=== PATIENT | male | born 1945 | race Caucasian/White ===

== ENCOUNTER 2018-01-17 05:56 | Inpatient (IN) ==
[2018-01-17] MEDS ORDERED: CeFAZolin Syr 2,000MG/20 ML 2,000 MG/20 ML SYRINGE IVPB ONE (06:22)
[2018-01-17] MEDS ORDERED: Ringers Solution, Lactated 1,000 ML IVC SCH ×3 (06:30→11:23)
[2018-01-17] MEDS ORDERED: Lidocaine -MPF 2% 2 ML VIAL ONE (06:58)
[2018-01-17] MEDS ORDERED: Lidocaine -MPF 4% 5 ML AMPUL ONE (06:58)
[2018-01-17] MEDS ORDERED: Dexamethasone 4 MG/ML VIAL ONE (06:58)
[2018-01-17] MEDS ORDERED: *HR* Midazolam HCl 2 MG/2 ML VIAL ONE (06:58)
[2018-01-17] MEDS ORDERED: *HR* Succinylcholine 200 MG/10 ML VIAL IVP ONE (06:58)
[2018-01-17] MEDS ORDERED: Ondansetron 4 MG/2 ML VIAL ONE (06:58)
[2018-01-17] MEDS ORDERED: *HR* Rocuronium Bromide 50 MG/5 ML VIAL ONE (06:58)
--- NOTE | 2018-01-17 06:58 | History & Physical Report ---
Date of Encounter: 01/17/18 Time of Encounter: 06:57 24 Hour HP Update - Instructions Instructions: If the History and Physical is less than 30 days old and was completed prior to A.M. admission and or procedure and has NOT been updated on calendar day of procedure please complete this update prior to performing procedure. - Update Patient reports changes in Medical Condition: No Changes in examination, assessment, or condition: No Changes in Medication: No Preop tests/diagnostics Reviewed: Yes Surgery Remains Indicated: Yes Consent for Planned Operative Procedure(s) Verified: Yes - Pre-Operative Checklist Preoperative Checklist Indicated: No Prophylactic Antibiotic Ordered: Yes Is VTE Prophylaxis Indicated?: Yes
[2018-01-17] MEDS ORDERED: *HR* Propofol 200 MG/20 ML VIAL IVP ONE ×2 (06:59→11:02)
[2018-01-17] MEDS ORDERED: *HR* FentaNYL (PF) 100 MCG/2 ML VIAL ONE (06:59)
--- NOTE | 2018-01-17 07:00 | Discharge Summary ---
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 Priority: Primary Status: Chronic Qualifiers: Fracture type: closed Fracture morphology: other fracture Fracture alignment: displaced Qualified Code(s): S42.291P - Other displaced fracture of upper end of right humerus, subsequent encounter for fracture with malunion (2) Closed fracture of right proximal humerus Priority: Primary Status: Acute Qualifiers: Encounter type: subsequent encounter Fracture morphology: unspecified fracture morphology Fracture healing: with routine healing Qualified Code(s) : S42.201D - Unspecified fracture of upper end of right humerus, subsequent encounter for fracture with routine healing (3) Obesity (BMI 30.0-34.9) Priority: Secondary Status: Chronic (4) Anxiety disorder Priority: Secondary Status: Chronic Qualifiers: Anxiety disorder type: unspecified anxiety disorder Qualified Code(s): F41.9 - Anxiety disorder, unspecified (5) Status post reverse total replacement of right shoulder Priority: Primary Status: Acute (6) Hypertension Priority: Secondary Status: Chronic Qualifiers: Hypertension type: essential hypertension Qualified Code(s): I10 - Essential (primary) hypertension (7) Hyperlipidemia Priority: Secondary Status: Chronic Qualifiers: Hyperlipidemia type: unspecified Qualified Code(s): E78.5 - Hyperlipidemia , unspecified - Hospital Course Hospital course: Mr. Griffith is a 72 year old male - Time Spent with Patient Total time spent providing and/or coordinating discharge services: - Discharge Medications Home Medications: Aspirin 81 mg PO DAILY 08/28/15 [History] Atorvastatin [Lipitor] 10 mg PO HS 08/28/15 [History] Celecoxib [Celebrex] 200 mg PO DAILY 08/28/15 [History] Metformin HCl [Metformin HCl ER] 1,000 mg PO BID 08/28/15 [History] Tamsulosin [Flomax] 0.4 mg PO DAILY 08/28/15 [History] Cholecalciferol (D-3) [Vitamin D] 2,000 unit PO DAILY 06/18/16 [History] Empagliflozin [Jardiance] 10 mg PO DAILY 06/18/16 [History] Valsartan/Hydrochlorothiazide [Diovan Hct 80-12.5 mg Tablet] 1 tab PO DAILY [History] Oxycodone HCl/Acetaminophen [Percocet 5-325 mg Tablet] 1 each PO Q6H 3 Days #10 tablet 01/08/18 [Rx] Ubidecarenone [Co Q-10] 100 mg PO DAILY 01/08/18 [History] Dulaglutide [Trulicity] 0.75 mg SQ QWEEK 01/17/18 [History] Esomeprazole Magnesium [Nexium] 40 mg PO DAILY 01/17/18 [History] Loratadine [Claritin] 10 mg PO DAILY 01/17/18 [History] OxyCODONE Immed Rel [Roxicodone 5 MG] 5 mg PO Q4HR PRN 5 Days #20 tablet [Rx] Temazepam [Restoril] 30 mg PO HS 01/17/18 [History] Allergies/Adverse Reactions: 3 Allergy/AdvReac Type Severity Reaction Status Date / Time adhesive tape Allergy Rash Verified 01/17/18 06:59 tetanus shot Allergy See Uncoded 01/17/18 06:59 Comments FOAM AdvReac Rash Uncoded 01/17/18 06:59 PLASTIC BANDAIDS AdvReac Rash Uncoded 01/17/18 06:59 Primary care physician: Alex Bruno DO - Patient Status Disposition: Home, Self-Care Condition: Good - Discharge Instructions Follow Up With: Shawnee Dumont PAC [Physician Vat Tender] - 01/23/18 9:45 am Alex Bruno DO [Primary Care Provider] - 01/27/18 8:30 am Additional Instructions: No shoulder motion. Elbow motion only. Leave sling/wedge in place - remove only for hygiene. Wedge in place x 6 weeks. Discharge Instructions: Total Shoulder Please call [facility] ([phone]), your Primary Care Physician, or report to the Emergency Room if you have any of the following symptoms: Nausea, vomiting, fever greater that 101.5, swelling, chest pain, shortness of breath, increased pain/redness/drainage/odor for your incision site, numbness/ tingling, or any other concerning symptoms. ACTIVITY: Always keep your arm in the sling. Do not raise your arm away from your body. Do not use your arm to help with getting in or out of bed. No weight bearing permitted. Incentive Spirometer 10 times an hour. MEDICATIONS: Upon discharge resume your home medications. Take all the medications as prescribed. Take a stool softener if taking narcotic pain medications. Stool softeners are only effective if you drink enough fluids. Drink 6-8 glass of water or fluids a day, unless this is not allowed for another health problem. Despite using stool softeners, if you haven't had a bowel movement in 3 days, please switch to a gentle laxative. Gentle laxatives are sold over the counter. You should have a bowel movement within 24 hours, if not call the office. You will be discharged from the hospital with a prescription for pain medication. You are encouraged to decrease the use of narcotic pain medication as tolerated. Should you require a refill, please call the office. [facility] prescribes narcotic pain medication for only 4-6 weeks after surgery. If you require pain medication beyond this time period, you may be referred to your Primary Care Physician or to the Pain Clinic for further evaluation. Plan ahead for refills on pain medication as many narcotics either need to be picked up at the office or mailed. It is best to call 48-72 hours in advance of needing a prescription refill so you don't run out of medication. To help control the post-operative pain, you may take NSAIDs (Aleve,Advil, Motrin, Ibuprofen, Naprosyn) or Tylenol as prescribed on the bottle in addition to the pain medication. WOUND CARE: Leave the dressing on for 7-10 days. You may change the dressing if it becomes saturated greater than 50%. Do not get the dressing wet at anytime. Wash your hands with antibacterial soap, rinse and dry prior to any wound care. If you have patricio the visiting nurse or rehab facility can remove the stapes 10-14 days after surgery and place steri-strips across the wound. Leave the steri-strips in place until they fall off on their own. You may let water from the shower run on top of the steri-strips. If you do not have a visiting nurse or rehab facility, you will need to return to the office at 10-14 days for the patricio to be removed. If you have itching or redness around the dressing call the office. FOLLOW-UP: Please follow up with your surgeon in the orthopedic clinic, as scheduled <Alma Brandon - Last Filed: 01/17/18 14:55> Orders not resulted at time of discharge: Pending orders 01/17/18 07:13 EKG [ECG 12 lead ECG] [ECG] Stat 01/17/18 07:22 US anesthesia pain block [US] Stat 01/17/18 09:47 Surgical Pathology [PTH] Routine 01/18/18 04:00 Hemoglobin and Hematocrit [HEME] AM 0400 01/19/18 04:00 Hemoglobin and Hematocrit [HEME] AM 0400 Date of Encounter: 01/17/18 Time of Encounter: 12:15 - Discharge Diagnosis (1) Status post reverse total replacement of right shoulder Priority: Primary Status: Acute (2) Closed fracture of right proximal humerus Priority: Secondary Status: Acute Qualifiers: Encounter type: subsequent encounter Fracture morphology: unspecified fracture morphology Fracture healing: with routine healing Qualified Code(s) : S42.201D - Unspecified fracture of upper end of right humerus, subsequent encounter for fracture with routine healing (3) Anxiety disorder Priority: Secondary Status: Chronic Qualifiers: Anxiety disorder type: unspecified anxiety disorder Qualified Code(s): F41.9 - Anxiety disorder, unspecified (4) 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 Priority: Secondary Status: Chronic Qualifiers: Fracture type: closed Fracture morphology: other fracture Fracture alignment: displaced Qualified Code(s): S42.291P - Other displaced fracture of upper end of right humerus, subsequent encounter for fracture with malunion (5) Hyperlipidemia Priority: Secondary Status: Chronic Qualifiers: Hyperlipidemia type: unspecified Qualified Code(s): E78.5 - Hyperlipidemia , unspecified (6) Hypertension Priority: Secondary Status: Chronic Qualifiers: Hypertension type: essential hypertension Qualified Code(s): I10 - Essential (primary) hypertension (7) Obesity (BMI 30.0-34.9) Priority: Secondary Status: Chronic - Hospital Course Hospital course: Mr. Griffith is a 72 year old male s/p Total Shoulder Replacment Reverse, right with a history of DM, RA, HTN, anxiety . Patient had uneventful postoperative course. Stable for discharge. Patient seen at bedside, without complaints. A&O x 3 Afebrile, vital signs stable. Postop dressings c/d/i. Full ROM of wrist/ fingers. slingshot brace in place. Labs reviewed. H/H 11.8/35.7 - stable, asymptomatic Pain control: adequate Participating in PT. NO SHOULDER MOTION, must wear brace at all times and only remove for hygiene purposes. NO shoulder therapy, may work with elbow and wrist ROM only. All questions and concerns addressed. Educated on use of incentive spirometer. Encouraged ambulation and proper hydration. Patient educated on post-operative restrictions and post-operative care. Assessment and plan: Continue with postoperative care Discharge plan: Home , discharge today. - Time Spent with Patient Total time spent providing and/or coordinating discharge services: Date of admission: 01/17/18 11:24 Primary care physician: Alex Bruno DO Consults: 01/17/18 11:23 Consult to Occupational Therapy [CONS] Routine Comment: post shoulder surgery Reason for Consult: post shoulder surgery Does patient have active BEDREST order?: No Is patient medically & hemodynamically stable?: Yes Consult to Physical Therapy [CONS] Routine Comment: post shoulder surgery Reason for Consult: post shoulder surgery Does patient have active BEDREST order?: No Is patient medically & hemodynamically stable?: Yes RT Post Op Consult [CONS] Routine Discharging clinician: Charles Carmona Anticipated date of discharge: 01/17/18 Labs on day of discharge: Labs from last 24 hours 01/17/18 01/17/18 10:26 06:29 Hgb 11.8 L D Hct 35.7 L POC Glucose 121 H - Impressions ITS Impressions Fluoroscopy 01/17/18 00:00 IMPRESSION: Intraprocedural fluoroscopic spot images as above. See separate procedure report for more information. D/ /17/2018 10:07:30 Manish Vazquez MD / erickson Interpreting Provider: Manish Vazquez MD Shoulder X-Ray 01/17/18 00:00 IMPRESSION: Intraprocedural fluoroscopic spot images as above. See separate procedure report for more information. D/ /17/2018 10:07:30 Manish Vazquez MD / erickson Interpreting Provider: Manish Vazquez MD Shoulder X-Ray 01/17/18 07:00 IMPRESSION: No radiographic evidence of acute complication status post reverse right total shoulder arthroplasty. D/ / Yonny Horn MD / Yonny Horn MD Interpreting Provider: Yonny Horn MD - Patient Status Functional capacity at discharge: independent ambulation Overall status at discharge: patient is back to baseline - Diet and Activity Activity: increase activity as tolerated (with NO shoulder motion) Diet: advance to your usual diet
--- NOTE | 2018-01-17 07:08 | Anesthesia Evaluation PreOp ---
Date of Encounter: 01/17/18 Time of Encounter: 07:04 - Past History Planned Operation: R total shoulder replacement Cardiac History: HTN, Hyperlipidemia Pulmonary History: Denies Any Significant HX [employer]ISH RUBBER History: Other (depression, anxiety) Other Medical History: Diabetes Type II Anesthesia History: No Prior Anesthetic Complications, Past Anesthesia (skin ca , R shoulder sx, colonoscopy, EGD, nishi cataract) Alcohol Use: none Drug use: none Medications and Allergies Aspirin 81 mg PO DAILY 08/28/15 [History] Atorvastatin [Lipitor] 10 mg PO HS 08/28/15 [History] Celecoxib [Celebrex] 200 mg PO DAILY 08/28/15 [History] Metformin HCl [Metformin HCl ER] 1,000 mg PO BID 08/28/15 [History] Omeprazole [PriLOSEC] 20 mg PO DAILY 08/28/15 [History] Tamsulosin [Flomax] 0.4 mg PO DAILY 08/28/15 [History] Cholecalciferol (D-3) [Vitamin D] 5,000 unit PO DAILY 06/18/16 [History] Empagliflozin [Jardiance] 10 mg PO DAILY 06/18/16 [History] Valsartan/Hydrochlorothiazide [Diovan Hct 80-12.5 mg Tablet] 1 tab PO DAILY [History] Coq10 01/08/18 [History] Cyclobenzaprine [Flexeril] 10 mg PO TID PRN #10 tablet 01/08/18 [Rx] [place]-3 01/08/18 [History] Oxycodone HCl/Acetaminophen [Percocet 5-325 mg Tablet] 1 each PO Q6H 3 Days #10 tablet 01/08/18 [Rx] Probiotic Complex 01/08/18 [History] Trulicity 01/08/18 [History] 3 Allergy/AdvReac Type Severity Reaction Status Date / Time adhesive tape Allergy Rash Verified 01/17/18 06:59 tetanus shot Allergy See Uncoded 01/17/18 06:59 Comments FOAM AdvReac Rash Uncoded 01/17/18 06:59 PLASTIC BANDAIDS AdvReac Rash Uncoded 01/17/18 06:59 - Meds/Allergy Pre-op Review Medications Reviewed: Yes Allergies Reviewed: Yes Beta Blockers on Current Med List: No Anesthesia Results - Labs Laboratory Tests 10/24/16 01/16/18 01/16/18 13:57 10:57 10:57 WBC 11.1 Hgb 15.0 Hct 44.9 Plt Count 263 Sodium 138 Potassium 4.0 Chloride 99 Carbon Dioxide 29 BUN 16 POC Creatinine 1.00 Creatinine 0.80 Hemoglobin A1c 01/16/18 10:58 WBC Hgb Hct Plt Count Sodium Potassium Chloride Carbon Dioxide BUN POC Creatinine Creatinine Hemoglobin A1c 6.7 H Anesthesia Exam O2 Sat Height 1.75 m Height 1.75 m Height 1.75 m Weight 92.533 kg Weight 92.533 kg Weight 92.533 kg O2 Sat by Pulse Oximetry 96 Vital Signs Temp Pulse Resp BP Pulse Ox 98.2 F 93 18 136/71 96 01/17/18 06:32 01/17/18 06:32 01/17/18 06:32 01/17/18 06:32 01/17/18 06:32 Weight: 92kg NPO (# of Hours): >8 - HEENT Pupil (Motor): Pupils equal, EOMI Mallampati: III Teeth: Poor dentition Oral Opening: Greater than 3 - FINNISH RUBBER LOC: Oriented FIN[employer]ISH RUBBER Motor: Normal RUE, Normal LUE, Normal RLE, Normal LLE, Normal Face [employer]ISH RUBBER Sensory: Normal: RUE, LUE, RLE, LLE, Face - Cardiac Rhythm: Regular - Pulmonary Breath Sounds: bilateral Clear Respiratory Effort: Symmetrical Anesthesia Assess/Plan ASA Score: 2 Modified [place] Scale for Level of Consciousness: Cooperative, oriented, and tranquil Anesthetic Plan: General, Regional (R supraclav nn block) Monitoring Plan: Standard Monitors Recovery Plan: PACU
[2018-01-17] MEDS ORDERED: ROPIVACAINE HCL/PF 0.5% 30 ML VIAL ONE (07:09)
[2018-01-17] MEDS ORDERED: Bupivacaine/Clonidine Syringe 1 EACH SYRINGE ONE (07:09)
[2018-01-17] MEDS ORDERED: Lidocaine -MPF 2% 5 ML VIAL ONE (07:09)
[2018-01-17] MEDS ORDERED: Acetaminophen IV 1,000 MG/100 ML INFUS..BTL ONE (07:15)
[2018-01-17] MEDS ORDERED: Ethanol\\Acetic Acid\\Na Ace\\Ben 1,000 ML IRRIG.SOLN IR ONE (07:20)
[2018-01-17] MEDS ORDERED: Dextrose Gel 15 GM/37.5 ML TUBE PO PRN ×4 (08:03→11:23)
[2018-01-17] MEDS ORDERED: D5% in Water 1,000 ML IVC PRN (08:03)
[2018-01-17] MEDS ORDERED: *HR* Dextrose 50 % in Water (Syg) 50 ML SYRINGE IVP PRN ×2 (08:03→11:23)
[2018-01-17] MEDS ORDERED: *HR* PHENYLEPHRINE 1,000 MCG/10 ML SYRINGE IVP ONE ×2 (08:10→09:38)
[2018-01-17] MEDS ORDERED: EPHEDrine 50 MG/ML VIAL ONE (08:27)
[2018-01-17] MEDS ORDERED: *HR* OxyCODONE Immed Rel 5 MG TABLET PO PRN ×2 (08:31→11:23)
--- NOTE | 2018-01-17 08:31 | Anesthesia Procedures ---
Date of Encounter: 01/17/18 Time of Encounter: 07:30 Procedures: Anesthesia - Nerve Block Procedure Date: 01/17/18 Time: 07:30 Allergies/Adv Reactions: 3 Allergy/AdvReac Type Severity Reaction Status Date / Time adhesive tape Allergy Rash Verified 01/17/18 06:59 tetanus shot Allergy See Uncoded 01/17/18 06:59 Comments FOAM AdvReac Rash Uncoded 01/17/18 06:59 PLASTIC BANDAIDS AdvReac Rash Uncoded 01/17/18 06:59 Pre-op Diagnosis: right total shoulder Checklist: Correct Patient Identifier, Correct procedure, History checked Correct side: Right Blood Thinner: No Monitor Applied: EKG, BP, Pulse Oximetry Supplemental Oxygen via Nasal Cannula (L/min): 2 Sedation: Versed (mg): 2 Sedation: Fentanyl (mcg): 100 Indication: Post Op Analgesia Pre-op Neuro Deficits: No Block Type: Interscalene, Supraclavicular, Other (SCP, ICB) Catheter placed: No Sterile Technique: Yes Ultrasound used: Yes Anatomy identified: Yes Visual spread of Local: Yes Blood on Needle Aspiration: No Smooth Injection of Local: Yes Pain with Injection of Local: No Prep: Chlorhexadine Needle: 22 x 50 mm Stimuplex Local: 0.25% Bupivicaine w/Clonidine 20 mcg/cc, Ropivacaine Volume (cc): 50 Number of Attempts: 1 Complications: None/effective block Vitals: see nurses notes for vitals
[2018-01-17] MEDS ORDERED: *HR* FentaNYL (PF) 100 MCG/2 ML VIAL IVP PRN (08:32)
[2018-01-17] MEDS ORDERED: *HR* Midazolam HCl 2 MG/2 ML VIAL IVP PRN (08:32)
[2018-01-17] MEDS ORDERED: *HR* Labetalol 20 MG/4 ML SYRINGE IVP PRN (08:32)
--- NOTE | 2018-01-17 10:09 | Orthopedic Operative Note ---
Date of procedure: 01/17/18 Pre-op diagnosis: Right shoulder old proximal humeral malunion acute proximal humerus fractur Post-op diagnosis: same Procedure: Procedure: Total Shoulder Replacment Reverse, right Estimated blood loss: 600 cc Hardware: Metal and polyethylene replacement: Arthrex 28 mm neutral glenoid baseplate, 30 mm post 4, 5.5 locking screws, 42+ 4S here glenosphere, 9 revision humeral stem, poly insert 3 constrained, 3 cerclage fiber tapes Procedural Notes: Patient with a significant malunion of the proximal humerus with a fracture below the surgical neck malunion was chronic fracture was acute. Operative procedure: The patient was brought to the operating room and placed on the operating room table. After general anesthesia was administered the operative shoulder was examined. Findings were noted. The patient was placed in the modified beachchair position. All pressure points were padded appropriately. And the head was stabilized in the neutral position. The operative extremity was prepped and draped in the sterile surgical fashion. The patient received IV antibiotics prior to skin incision. A standard deltopectoral approach was made to the operative shoulder. Incision was made to the skin and subcutaneous tissue,hemo stasis was obtained with Bovie cautery. Using careful blunt dissection the cephalic vein was identified and mobilized medially. The deltopectoral interval was developed and the clavipectoral fascia was incised. The fracture site was identified, this was below the surgical neck, the distal fragment was delivered into the wound and was reamed up to the 9 revision reamer. Attention was then turned to the proximal fragment, significant malformation from the malunion, no identifiable subscap anterior soft tissue was removed and a humeral cut was made. The proximal fragment was poor quality bone and fragmented during preparation. Attention was then turned to the glenoid. Anterior and posterior Bankart retractors were placed to expose the glenoid. The glenoid guide was seated and the centering hole was made. It was reamed with the appropriate reamer. 28 mm neutral baseplate with a 30 mm post was seated and secured with (4) 5.5 screw. The baseplate was irrigated and dried and the 42+4 Glenosphere was seated and secured with the Vu taper. The Vu taper was tested and found to be secure the central locking screw was secured. the humerus was redislocated and prepared with the diaphyseal reamers, followed by a broaching process up to the appropriate size 9 revision stem in 20 degrees of retroversion. The metaphyseal reamer was then utilized. Trial reduction found the shoulder to be relocatable. Trial components were removed and The appropriate 9 revision stem was impacted in place in 20 degrees of retroversion. The proximal fragmented portion was secured around the proximal humerus with 3 cerclage fiber tapes. Trial reduction found the shoulder to be relocatable and stable with the 3 constrained liner. Poly-was removed real Yessenia was seated and secured. The shoulder had excellent motion and excellent stability and no evidence of dislocation. The deep tissue was irrigated with pulse irrigation and an antibacterial solution. The deltopectoral interval was closed with a running #1 PDS suture, subcutaneous tissue was irrigated and closed with 0 PDS suture, the skin was closed with skin patricio. The patient was placed in a sterile dressing, abduction brace and extubated. The patient was then transferred to the recovery room in stable condition. Anesthesia: MARY Surgeon: Charles Carmona Was there an assistant head cashier present: No Estimated blood loss (cc): 600 Condition: stable Disposition: PACU
--- NOTE | 2018-01-17 10:38 | Anesthesia Evaluation Post Op ---
Date of Encounter: 01/17/18 Time of Encounter: 10:37 - Vital Signs Vital Signs: Vital Signs/O2 Sat, Most Current Temp Pulse Resp BP Pulse Ox 98.2 F 102 18 141/89 95 01/17/18 10:03 01/17/18 10:23 01/17/18 10:23 01/17/18 10:23 01/17/18 10:23 - Lungs Lungs: Clear Ascult./Percussion - Airway Airway: Non-obstructed - Cardiovascular Regular Rate - Mental Status Mental Status: Alert & Oriented, Answers Appropriately - Pain Pain Scale: 0 Pain Scale used: Numeric (1 - 10) - Nausea Vomiting Nausea Vomiting: Not Present - Hydration Hydration: Tolerates oral liquids - Discharge PostOp Status: Discharge Patient to home
[2018-01-17 10:51] LABS: Hematocrit 35.7 % (37.5-50.1)
[2018-01-17 10:52] LABS: Hemoglobin 11.8 g/dL (12.9-16.9)
[2018-01-17] MEDS ORDERED: Empagliflozin [Jardiance] 10 MG PO SCH (11:23)
[2018-01-17] MEDS ORDERED: Cholecalciferol (D-3) 1,000 UNIT TABLET PO SCH (11:23)
[2018-01-17] MEDS ORDERED: MOM Conc 10 ML UD.LIQ PO PRN (11:23)
[2018-01-17] MEDS ORDERED: Aspirin 81 MG TAB.CHEW PO SCH (11:23)
[2018-01-17] MEDS ORDERED: COQ10 100 MG PO SCH (11:23)
[2018-01-17] MEDS ORDERED: *HR* OxyCODONE/APAP 5/325 TABLET PO PRN (11:23)
[2018-01-17] MEDS ORDERED: Ondansetron 4 MG/2 ML VIAL IVP PRN (11:23)
[2018-01-17] MEDS ORDERED: Temazepam 15 MG CAPSULE PO PRN ×2 (11:23→21:00)
[2018-01-17] MEDS ORDERED: *HR* Metformin 500 MG TABLET PO SCH (11:23)
[2018-01-17] MEDS ORDERED: TRULICITY SQ SCH (11:23)
[2018-01-17] MEDS ORDERED: Valsartan 80 MG TABLET PO SCH (11:23)
[2018-01-17] MEDS ORDERED: Loratadine 10 MG TABLET PO SCH (11:23)
[2018-01-17] MEDS ORDERED: traMADol 50 MG TABLET PO PRN (11:23)
[2018-01-17] MEDS ORDERED: Sennosides 8.6 MG TABLET PO PRN (11:23)
[2018-01-17] MEDS ORDERED: Naloxone 0.4 MG/ML INJ IVP PRN (11:23)
[2018-01-17] MEDS ORDERED: Insulin LISPRO 300 UNITS/3 ML VIAL SQ SCH ×4 (11:30→21:00)
[2018-01-17] MEDS ORDERED: *HR* Enoxaparin 30 MG/0.3 ML SYRINGE SQ SCH ×3 (14:00→18:00)
[2018-01-17 15:11] VITALS: BP 136/76
[2018-01-17] MEDS ORDERED: hydroCHLOROthiazide 25 MG TABLET PO SCH (15:45)
== END 2018-01-17 17:50 | disposition home or self-care (01) | DRG 483 ==
LOC: SAMDAY 05:56 → 3NENU 11:24
PROVIDERS: ADMIT Orthopaedic Surgery; ATTEND Orthopaedic Surgery

== ENCOUNTER 2021-08-28 05:59 | Inpatient (IN) ==
[2021-08-28] MEDS ORDERED: 0.9 % Sodium Chloride 1,000 ML ONE ×2 (06:36→08:01)
[2021-08-28] MEDS ORDERED: Heparin 1,000 UNITS/500 mL 500 ML ONE (08:01)
[2021-08-28] MEDS ORDERED: ISOVUE-370 200 ML INFUS..BTL ONE (08:01)
[2021-08-28] MEDS ORDERED: Nitroglycerin 1,000 MCG/5 ML VIAL IV ONE (08:01)
[2021-08-28] MEDS ORDERED: *HR* Midazolam HCl 2 MG/2 ML VIAL ONE ×2 (08:01→08:30)
[2021-08-28] MEDS ORDERED: *HR* FentaNYL (PF) 100 MCG/2 ML VIAL ONE ×2 (08:01→08:30)
[2021-08-28] MEDS ORDERED: *HR* Heparin 10,000 UNIT/10 ML VIAL ONE (08:01)
[2021-08-28] MEDS ORDERED: Perflutren Lipid Microsphere 1.3 ML in 0.9 % Sodium Chloride 8.7 ML IVP PRN (10:26)
[2021-08-28] MEDS ORDERED: Dextrose 4 GM Chewable Tablets PO PRN ×2 (10:56)
[2021-08-28] MEDS ORDERED: D5% in Water 1,000 ML IVC PRN (10:56)
[2021-08-28] MEDS ORDERED: *HR* Dextrose 50 % in Water (Syg) 50 ML SYRINGE IVP PRN (10:56)
[2021-08-28] MEDS: Aspirin Enteric Coated 81 MG Tablet PO SCH (11:15)
[2021-08-28] MEDS: Insulin LISPRO 300 UNITS/3 ML VIAL SUBQ SCH ×2 (11:48→17:21)
[2021-08-28] MEDS ORDERED: Ondansetron 4 MG/2 ML VIAL IVP PRN (11:59)
[2021-08-28] MEDS ORDERED: Naloxone 0.4 MG/ML INJ IVP PRN (11:59)
[2021-08-28] MEDS: *HR* Heparin 5,000 UNIT/ML VIAL SQ SCH (17:29)
[2021-08-28] MEDS: Acetaminophen 325 MG TABLET PO PRN (20:33)
[2021-08-28] MEDS: Temazepam 15 MG CAPSULE PO PRN (21:03)
[2021-08-29 02:05] LABS: Basophils # 0.1 K/mcL (0.0-0.2); Basophils % 1.4 %; Eosinophils # 0.3 K/mcL (0.0-0.6); Eosinophils % 3.3 %; Hematocrit 46.7 % (37.5-50.1); Hemoglobin 16.2 g/dL (12.9-16.9); Immature Granulocytes % 1.6 % (0-4); Lymphocytes # 1.7 K/mcL (0.6-4.6); Lymphocytes % 19.7 %; Mean Corpuscular HGB Conc 34.7 g/dL (31.6-35.5); Mean Corpuscular Hemoglobin 31.6 pg (28.0-33.3); Mean Platelet Volume 11.8 fL (9.4-12.4); Monocytes # 0.9 K/mcL (0.0-1.3); Monocytes % 10.4 %; Neutrophils # 5.6 K/mcL (1.6-8.9); Platelet Count 194 K/mcL (140-400); Red Blood Count 5.13 M/mcL (4.19-5.50); Red Cell Distribution Width 13.3 % (11.5-14.5); Segmented Neutrophils % 63.6 %; White Blood Count 8.8 K/mcL (4.3-11.1)
[2021-08-29 02:22] LABS: BUN/Creatinine Ratio 17 (6-26); Blood Urea Nitrogen 19 mg/dL (8-23); Calcium 9.8 mg/dL (8.6-10.3); Carbon Dioxide 25 mEq/L (23-29); Chloride 104 mEq/L (98-107); Glucose 174 mg/dL (70-105); Osmolality,Calculated 292 (280-300); Potassium 3.5 mEq/L (3.5-5.1); Sodium 138 mEq/L (136-145); eGFR For African Americans > 60 (> 60); eGFR For Non-African Americans > 60 (> 60)
[2021-08-29] MEDS: *HR* Heparin 5,000 UNIT/ML VIAL SQ SCH ×2 (06:19→16:31)
[2021-08-29] MEDS: VIT E ACETATE PO SCH (07:50)
[2021-08-29] MEDS: Aspirin Enteric Coated 81 MG Tablet PO SCH (07:50)
[2021-08-29] MEDS: Losartan/HCTZ 50-12.5 TABLET PO SCH (07:50)
[2021-08-29] MEDS: Cholecalciferol (D-3) 1,000 UNIT (25MCG) TABLET PO SCH (07:50)
[2021-08-29] MEDS: UBIDECARENONE PO SCH (07:50)
[2021-08-29] MEDS: Acetaminophen 325 MG TABLET PO PRN ×2 (07:56→21:50)
[2021-08-29] MEDS: Insulin LISPRO 300 UNITS/3 ML VIAL SUBQ SCH ×3 (07:57→16:31)
[2021-08-29] MEDS: Temazepam 15 MG CAPSULE PO PRN (21:50)
[2021-08-30] MEDS: *HR* Heparin 5,000 UNIT/ML VIAL SQ SCH ×2 (07:33→16:41)
[2021-08-30] MEDS: VIT E ACETATE PO SCH (08:08)
[2021-08-30] MEDS: UBIDECARENONE PO SCH (08:08)
[2021-08-30] MEDS: Losartan/HCTZ 50-12.5 TABLET PO SCH (08:15)
[2021-08-30] MEDS: Aspirin Enteric Coated 81 MG Tablet PO SCH (08:15)
[2021-08-30] MEDS: Insulin LISPRO 300 UNITS/3 ML VIAL SUBQ SCH ×3 (08:15→16:41)
[2021-08-30] MEDS: Cholecalciferol (D-3) 1,000 UNIT (25MCG) TABLET PO SCH (08:15)
[2021-08-30] MEDS ORDERED: Albuterol 2.5 MG/3 ML NEBULIZER IH PRN (13:07)
[2021-08-30 15:25] LABS: Basophils # 0.1 K/mcL (0.0-0.2); Basophils % 1.2 %; Eosinophils # 0.2 K/mcL (0.0-0.6); Eosinophils % 2.3 %; Hematocrit 51.7 % (37.5-50.1); Immature Granulocytes % 1.7 % (0-4); Lymphocytes # 1.4 K/mcL (0.6-4.6); Lymphocytes % 14.7 %; Mean Corpuscular HGB Conc 34.6 g/dL (31.6-35.5); Mean Corpuscular Hemoglobin 31.6 pg (28.0-33.3); Mean Corpuscular Volume 91.2 fL (83.0-100.0); Mean Platelet Volume 11.8 fL (9.4-12.4); Monocytes # 0.9 K/mcL (0.0-1.3); Monocytes % 9.6 %; Neutrophils # 6.6 K/mcL (1.6-8.9); Platelet Count 222 K/mcL (140-400); Red Blood Count 5.67 M/mcL (4.19-5.50); Red Cell Distribution Width 13.3 % (11.5-14.5); Segmented Neutrophils % 70.5 %; White Blood Count 9.4 K/mcL (4.3-11.1)
[2021-08-30 15:26] LABS: Hemoglobin 17.9 g/dL (12.9-16.9)
[2021-08-30 15:30] LABS: Prothrombin Time 10.9 Seconds (9.4-12.1)
[2021-08-30 15:37] LABS: BUN/Creatinine Ratio 18 (6-26); Blood Urea Nitrogen 25 mg/dL (8-23); Carbon Dioxide 24 mEq/L (23-29); Chloride 104 mEq/L (98-107); Chol/HDL Ratio 4.9 (0-4.9); Cholesterol 131 mg/dL (< 200); Glucose 210 mg/dL (70-105); HDL Cholesterol 27 mg/dL (40-59); Osmolality,Calculated 297 (280-300); Potassium 4.3 mEq/L (3.5-5.1); Sodium 138 mEq/L (136-145); Triglycerides 542 mg/dL (< 150); eGFR For African Americans 60 (> 60); eGFR For Non-African Americans 49 (> 60)
[2021-08-30 15:55] LABS: Estimated Average Glucose 194 mg/dl; Hemoglobin A1C 8.4 %
[2021-08-30] MEDS: Chlorhexidine Rinse 15 ML MOUTHWASH MM SCH (22:12)
[2021-08-30] MEDS: Acetaminophen 325 MG TABLET PO PRN (22:12)
[2021-08-30] MEDS: Temazepam 15 MG CAPSULE PO PRN (22:12)
[2021-08-31] MEDS: *HR* Heparin 5,000 UNIT/ML VIAL SQ SCH ×2 (05:45→19:37)
[2021-08-31] MEDS ORDERED: Aspirin 81 MG TAB.CHEW PO ONE (06:00)
[2021-08-31] MEDS: Insulin LISPRO 300 UNITS/3 ML VIAL SUBQ SCH ×3 (06:55→19:37)
[2021-08-31] MEDS: Aspirin Enteric Coated 81 MG Tablet PO SCH (07:23)
[2021-08-31] MEDS: Cholecalciferol (D-3) 1,000 UNIT (25MCG) TABLET PO SCH (08:23)
[2021-08-31] MEDS: Chlorhexidine Rinse 15 ML MOUTHWASH MM SCH ×2 (08:23→21:14)
[2021-08-31 08:51] LABS: Basophils # 0.1 K/mcL (0.0-0.2); Basophils % 1.3 %; Eosinophils # 0.2 K/mcL (0.0-0.6); Eosinophils % 2.9 %; Hemoglobin 16.6 g/dL (12.9-16.9); Immature Granulocytes % 2.1 % (0-4); Lymphocytes # 1.3 K/mcL (0.6-4.6); Lymphocytes % 15.7 %; Mean Corpuscular HGB Conc 35.3 g/dL (31.6-35.5); Mean Corpuscular Hemoglobin 31.7 pg (28.0-33.3); Mean Corpuscular Volume 89.9 fL (83.0-100.0); Mean Platelet Volume 11.8 fL (9.4-12.4); Monocytes # 0.9 K/mcL (0.0-1.3); Monocytes % 11.2 %; Neutrophils # 5.3 K/mcL (1.6-8.9); Platelet Count 205 K/mcL (140-400); Red Blood Count 5.23 M/mcL (4.19-5.50); Red Cell Distribution Width 13.1 % (11.5-14.5); Segmented Neutrophils % 66.8 %; White Blood Count 7.9 K/mcL (4.3-11.1)
[2021-08-31 09:10] LABS: BUN/Creatinine Ratio 21 (6-26); Blood Urea Nitrogen 22 mg/dL (8-23); Calcium 9.5 mg/dL (8.6-10.3); Carbon Dioxide 25 mEq/L (23-29); Chloride 103 mEq/L (98-107); Glucose 227 mg/dL (70-105); Osmolality,Calculated 292 (280-300); Sodium 136 mEq/L (136-145); eGFR For African Americans > 60 (> 60); eGFR For Non-African Americans > 60 (> 60)
[2021-08-31] MEDS ORDERED: CeFAZolin Syr 2,000MG/20 ML 2,000 MG/20 ML SYRINGE IVPB ONE ×2 (09:59→16:45)
[2021-08-31] MEDS ORDERED: *HR* Midazolam HCl 5 MG/5 ML VIAL IVP ONE (11:22)
[2021-08-31] MEDS ORDERED: *HR* FentaNYL (PF) 1,000 MCG/20 ML VIAL ONE (11:22)
[2021-08-31] MEDS ORDERED: Papaverine 60 MG/2 ML VIAL IVP ONE ×2 (11:23→13:12)
[2021-08-31] MEDS ORDERED: niCARdipine 20 MG/200 ML MLS IVC ONE (11:23)
[2021-08-31] MEDS ORDERED: Tranexamic Acid 1,000 MG/10 ML VIAL ONE (11:25)
[2021-08-31] MEDS ORDERED: *HR* Etomidate 20 MG/10 ML AMPUL IVP ONE (11:25)
[2021-08-31] MEDS ORDERED: Protamine Sulfate 250 MG/25 ML VIAL IVP ONE (11:26)
[2021-08-31] MEDS ORDERED: DOBUTamine 1,000 MG/250 ML BAG ONE (11:30)
[2021-08-31] MEDS ORDERED: del Nido Cardioplegia Solution PF ONE ×2 (13:50)
[2021-08-31] MEDS ORDERED: Buckersberg's Blood Cardioplegia PF ONE (13:50)
[2021-08-31] MEDS ORDERED: Norepinephrine 4 MG in 0.9 % Sodium Chloride 250 ML IVC PRN (13:50)
[2021-08-31] MEDS ORDERED: Heparin 15,000 UNIT in 0.9 % Sodium Chloride 500 ML IV ONE (13:50)
[2021-08-31 14:27] LABS: ABG Base Excess 0 mEq/L (-2 to 3); ABG Chloride 104 mEq/L (98-107); ABG Glucose 195 mg/dL (60-95); ABG HCO3 27 mEq/L (21-27); ABG Ionized Calcium 1.17 mmol/L (1.15-1.35); ABG Oxygen Saturation 100 % (95-98); ABG PCO2 48 mmHg (35-45); ABG PH 7.35 pH Units (7.32-7.45); ABG PO2 340 mmHg (85-104); ABG TCO2 28 mEq/L (20-26)
[2021-08-31] MEDS ORDERED: *HR* Dextrose 50 % in Water (Syg) 50 ML SYRINGE IVP PRN (14:41)
[2021-08-31] MEDS ORDERED: Potassium Chloride 40 MEQ/200 ML BAG IVPB PRN (14:41)
[2021-08-31] MEDS ORDERED: Calcium Gluconate 1gm/50mL 1 GM/50 ML BAG IVPB PRN (14:41)
[2021-08-31] MEDS ORDERED: Insulin Regular, Human 100 UNIT/ML IV PRN (14:41)
[2021-08-31] MEDS ORDERED: DOBUTamine 1,000 MG/250 ML BAG IVC SCH (14:45)
[2021-08-31] MEDS ORDERED: Albumin Human 25% 25 GM/100 ML IV.SOLN IVPB ONE (14:54)
[2021-08-31] MEDS ORDERED: *HR* Phenylephrine 10 MG/ML VIAL IVC ONE (14:54)
[2021-08-31] MEDS ORDERED: Mannitol 25% vial 12.5 GM/50 ML VIAL IVPB ONE (14:54)
[2021-08-31] MEDS ORDERED: Lidocaine 2% Syringe 100 MG/5 ML IVP ONE (14:54)
[2021-08-31] MEDS ORDERED: *HR* Magnesium Sulfate 2 GM/50 ML PIGGYBACK IVPB ONE (14:54)
[2021-08-31] MEDS ORDERED: Tranexamic Acid 1,000 MG/10 ML VIAL IR ONE (14:54)
[2021-08-31] MEDS ORDERED: *HR* Heparin 10,000 UNIT/10 ML VIAL IR ONE (14:54)
[2021-08-31 15:19] LABS: ABG Base Excess 0 mEq/L (-2 to 3); ABG Chloride 103 mEq/L (98-107); ABG Glucose 277 mg/dL (60-95); ABG HCO3 26 mEq/L (21-27); ABG Ionized Calcium 1.19 mmol/L (1.15-1.35); ABG Oxygen Saturation 97 % (95-98); ABG PCO2 46 mmHg (35-45); ABG PH 7.36 pH Units (7.32-7.45); ABG PO2 98 mmHg (85-104); ABG TCO2 27 mEq/L (20-26)
[2021-08-31] MEDS ORDERED: *HR* Rocuronium Bromide 50 MG/5 ML VIAL ONE ×2 (15:27→18:30)
[2021-08-31 15:44] LABS: ABG Base Excess -1 mEq/L (-2 to 3); ABG Chloride 101 mEq/L (98-107); ABG Glucose 180 mg/dL (60-95); ABG HCO3 24 mEq/L (21-27); ABG Ionized Calcium 0.91 mmol/L (1.15-1.35); ABG Oxygen Saturation 100 % (95-98); ABG PCO2 40 mmHg (35-45); ABG PH 7.38 pH Units (7.32-7.45); ABG PO2 537 mmHg (85-104); ABG TCO2 25 mEq/L (20-26)
[2021-08-31 16:19] LABS: ABG Base Excess 2 mEq/L (-2 to 3); ABG Chloride 101 mEq/L (98-107); ABG Glucose 210 mg/dL (60-95); ABG HCO3 26 mEq/L (21-27); ABG Oxygen Saturation 100 % (95-98); ABG PCO2 38 mmHg (35-45); ABG PH 7.44 pH Units (7.32-7.45); ABG PO2 551 mmHg (85-104); ABG TCO2 27 mEq/L (20-26)
[2021-08-31 17:13] LABS: ABG Base Excess 0 mEq/L (-2 to 3); ABG Chloride 102 mEq/L (98-107); ABG Glucose 252 mg/dL (60-95); ABG HCO3 24 mEq/L (21-27); ABG Ionized Calcium 1.14 mmol/L (1.15-1.35); ABG Oxygen Saturation 100 % (95-98); ABG PCO2 38 mmHg (35-45); ABG PH 7.41 pH Units (7.32-7.45); ABG PO2 523 mmHg (85-104); ABG TCO2 25 mEq/L (20-26)
[2021-08-31 17:13] LABS: ABG Base Excess 0 mEq/L (-2 to 3); ABG Chloride 101 mEq/L (98-107); ABG Glucose 232 mg/dL (60-95); ABG HCO3 25 mEq/L (21-27); ABG Ionized Calcium 1.05 mmol/L (1.15-1.35); ABG Oxygen Saturation 100 % (95-98); ABG PCO2 42 mmHg (35-45); ABG PH 7.38 pH Units (7.32-7.45); ABG PO2 517 mmHg (85-104); ABG TCO2 26 mEq/L (20-26)
[2021-08-31 18:38] LABS: ABG Base Excess 0 mEq/L (-2 to 3); ABG HCO3 25 mEq/L (21-27); ABG Oxygen Saturation 95 % (95-98); ABG PCO2 42 mmHg (35-45); ABG PH 7.38 pH Units (7.32-7.45); ABG PO2 79 mmHg (85-104); ABG TCO2 26 mEq/L (20-26); Blood Gas VT 500 cc
[2021-08-31] MEDS: *HR* OxyCODONE/APAP 5/325 TABLET PO PRN ×2 (18:40→23:38)
[2021-08-31 18:46] LABS: Basophils # 0.1 K/mcL (0.0-0.2); Basophils % 0.4 %; Eosinophils # 0.1 K/mcL (0.0-0.6); Eosinophils % 0.4 %; Hematocrit 39.3 % (37.5-50.1); Immature Granulocytes % 1.5 % (0-4); Lymphocytes # 1.3 K/mcL (0.6-4.6); Lymphocytes % 6.4 %; Mean Corpuscular HGB Conc 35.1 g/dL (31.6-35.5); Mean Corpuscular Volume 91.2 fL (83.0-100.0); Mean Platelet Volume 11.7 fL (9.4-12.4); Monocytes # 1.4 K/mcL (0.0-1.3); Monocytes % 6.9 %; Neutrophils # 16.8 K/mcL (1.6-8.9); Platelet Count 148 K/mcL (140-400); Red Blood Count 4.31 M/mcL (4.19-5.50); Segmented Neutrophils % 84.4 %
[2021-08-31 18:47] LABS: Hemoglobin 13.8 g/dL (12.9-16.9); White Blood Count 19.9 K/mcL (4.3-11.1)
[2021-08-31 18:56] LABS: INR 1.1; Prothrombin Time 12.4 Seconds (9.4-12.1)
[2021-08-31 18:58] LABS: Activated Partial Thrombo Time 29.6 Seconds (26.0-36.0)
[2021-08-31 19:02] LABS: BUN/Creatinine Ratio 18 (6-26); Blood Urea Nitrogen 16 mg/dL (8-23); Calcium 7.6 mg/dL (8.6-10.3); Carbon Dioxide 25 mEq/L (23-29); Chloride 107 mEq/L (98-107); Glucose 265 mg/dL (70-105); Magnesium 2.5 mg/dL (1.6-2.6); Osmolality,Calculated 296 (280-300); Potassium 3.7 mEq/L (3.5-5.1); Sodium 138 mEq/L (136-145); eGFR For African Americans > 60 (> 60); eGFR For Non-African Americans > 60 (> 60)
[2021-08-31] MEDS: *HR* FentaNYL (PF) 100 MCG/2 ML VIAL IVP PRN ×2 (19:21→22:25)
[2021-08-31] MEDS: Norepinephrine 4 MG/254 ML IV.SOLN IVC SCH (19:36)
[2021-08-31] MEDS: niCARdipine 20 MG/200 ML MLS IVC SCH ×3 (19:36→20:04)
[2021-08-31] MEDS: Albumin Human 5% 12.5 GM/250 ML IV.SOLN IVPB PRN (19:38)
[2021-08-31] MEDS: Pantoprazole 40 MG VIAL IVP SCH (19:45)
[2021-08-31] MEDS ORDERED: Aspirin Enteric Coated 81 MG Tablet PO SCH (21:00)
[2021-08-31] MEDS ORDERED: CeFAZolin 2 GM/120 ML BAG IVPB SCH (21:00)
[2021-08-31] MEDS: Aspirin 81 MG TAB.CHEW PO SCH (21:14)
[2021-08-31 22:53] LABS: ABG Base Excess -2 mEq/L (-2 to 3); ABG HCO3 22 mEq/L (21-27); ABG Oxygen Saturation 98 % (95-98); ABG PCO2 34 mmHg (35-45); ABG PH 7.41 pH Units (7.32-7.45); ABG PO2 105 mmHg (85-104); ABG TCO2 23 mEq/L (20-26); Blood Gas Modality CPAP/PS; Blood Gas Pressure Support 5 cm H2O
[2021-09-01 00:26] LABS: ABG Base Excess -3 mEq/L (-2 to 3); ABG HCO3 21 mEq/L (21-27); ABG Oxygen Saturation 96 % (95-98); ABG PCO2 34 mmHg (35-45); ABG PO2 81 mmHg (85-104); ABG TCO2 22 mEq/L (20-26); Blood Gas Modality 3LPM
[2021-09-01] MEDS: *HR* FentaNYL (PF) 100 MCG/2 ML VIAL IVP PRN ×2 (01:03→06:33)
[2021-09-01] MEDS: niCARdipine 20 MG/200 ML MLS IVC SCH ×3 (02:18→11:10)
[2021-09-01] MEDS: CeFAZolin 2 GM/120 ML BAG IVPB SCH ×3 (02:18→18:04)
[2021-09-01] MEDS: Norepinephrine 4 MG/254 ML IV.SOLN IVC SCH (02:18)
[2021-09-01 03:55] LABS: Basophils % 0.2 %; Hematocrit 34.5 % (37.5-50.1); Immature Granulocytes % 0.9 % (0-4); Lymphocytes # 0.8 K/mcL (0.6-4.6); Lymphocytes % 4.4 %; Mean Corpuscular HGB Conc 34.2 g/dL (31.6-35.5); Mean Corpuscular Hemoglobin 31.2 pg (28.0-33.3); Mean Corpuscular Volume 91.3 fL (83.0-100.0); Mean Platelet Volume 11.8 fL (9.4-12.4); Monocytes # 1.5 K/mcL (0.0-1.3); Monocytes % 8.5 %; Platelet Count 155 K/mcL (140-400); Red Blood Count 3.78 M/mcL (4.19-5.50); Red Cell Distribution Width 13.3 % (11.5-14.5); White Blood Count 17.4 K/mcL (4.3-11.1)
[2021-09-01 03:57] LABS: Hemoglobin 11.8 g/dL (12.9-16.9)
[2021-09-01 04:09] LABS: INR 1.2; Prothrombin Time 12.9 Seconds (9.4-12.1)
[2021-09-01 04:11] LABS: Activated Partial Thrombo Time 28.8 Seconds (26.0-36.0)
[2021-09-01 04:13] LABS: BUN/Creatinine Ratio 19 (6-26); Blood Urea Nitrogen 18 mg/dL (8-23); Carbon Dioxide 24 mEq/L (23-29); Chloride 107 mEq/L (98-107); Glucose 116 mg/dL (70-105); Magnesium 2.1 mg/dL (1.6-2.6); Osmolality,Calculated 287 (280-300); Potassium 3.7 mEq/L (3.5-5.1); Sodium 137 mEq/L (136-145); eGFR For African Americans > 60 (> 60); eGFR For Non-African Americans > 60 (> 60)
[2021-09-01] MEDS: Albumin Human 5% 12.5 GM/250 ML IV.SOLN IVPB PRN ×3 (04:16→09:02)
[2021-09-01] MEDS: *HR* OxyCODONE/APAP 5/325 TABLET PO PRN ×4 (04:33→20:04)
[2021-09-01] MEDS: *HR* Heparin 5,000 UNIT/ML VIAL SQ SCH ×2 (06:33→18:03)
[2021-09-01] MEDS: Insulin LISPRO 300 UNITS/3 ML VIAL SUBQ SCH ×4 (07:43→19:56)
[2021-09-01] MEDS: Pantoprazole 40 MG VIAL IVP SCH (08:00)
[2021-09-01] MEDS: Cholecalciferol (D-3) 1,000 UNIT (25MCG) TABLET PO SCH (08:50)
[2021-09-01] MEDS: Aspirin 81 MG TAB.CHEW PO SCH (08:51)
[2021-09-01] MEDS: Chlorhexidine Rinse 15 ML MOUTHWASH MM SCH ×2 (08:54→20:04)
[2021-09-01] MEDS ORDERED: Furosemide 40 MG/4 ML VIAL IVP SCH (09:00)
[2021-09-01] MEDS ORDERED: D5% in Water 1,000 ML IVC PRN (14:23)
[2021-09-01] MEDS ORDERED: Dextrose 4 GM Chewable Tablets PO PRN ×2 (14:23)
[2021-09-01] MEDS ORDERED: Albuterol 2.5 MG/3 ML NEBULIZER IH PRN (14:23)
[2021-09-01] MEDS ORDERED: Ondansetron 4 MG/2 ML VIAL IVP PRN (14:23)
[2021-09-01] MEDS ORDERED: *HR* Dextrose 50 % in Water (Syg) 50 ML SYRINGE IVP PRN (14:23)
[2021-09-01] MEDS ORDERED: Naloxone 0.4 MG/ML INJ IVP PRN (14:23)
[2021-09-01] MEDS: Furosemide 40 MG/4 ML VIAL IVP SCH (20:04)
[2021-09-01] MEDS: Temazepam 15 MG CAPSULE PO PRN (21:22)
[2021-09-02] MEDS: *HR* OxyCODONE/APAP 5/325 TABLET PO PRN ×3 (00:35→13:02)
[2021-09-02] MEDS: CeFAZolin 2 GM/120 ML BAG IVPB SCH ×3 (01:07→18:02)
[2021-09-02 03:21] LABS: Basophils % 0.2 %; Eosinophils % 0.2 %; Hematocrit 26.9 % (37.5-50.1); Immature Granulocytes % 1.2 % (0-4); Lymphocytes # 0.5 K/mcL (0.6-4.6); Lymphocytes % 3.8 %; Mean Corpuscular HGB Conc 34.6 g/dL (31.6-35.5); Mean Corpuscular Hemoglobin 32.4 pg (28.0-33.3); Mean Corpuscular Volume 93.7 fL (83.0-100.0); Mean Platelet Volume 12.5 fL (9.4-12.4); Monocytes # 1.3 K/mcL (0.0-1.3); Neutrophils # 10.2 K/mcL (1.6-8.9); Platelet Count 106 K/mcL (140-400); Red Blood Count 2.87 M/mcL (4.19-5.50); Red Cell Distribution Width 13.8 % (11.5-14.5); Segmented Neutrophils % 83.6 %; White Blood Count 12.1 K/mcL (4.3-11.1)
[2021-09-02 03:23] LABS: Hemoglobin 9.3 g/dL (12.9-16.9)
[2021-09-02 03:35] LABS: BUN/Creatinine Ratio 14 (6-26); Blood Urea Nitrogen 16 mg/dL (8-23); Calcium 7.9 mg/dL (8.6-10.3); Carbon Dioxide 24 mEq/L (23-29); Chloride 99 mEq/L (98-107); Glucose 236 mg/dL (70-105); Magnesium 2.1 mg/dL (1.6-2.6); Osmolality,Calculated 283 (280-300); Potassium 3.6 mEq/L (3.5-5.1); Sodium 132 mEq/L (136-145); eGFR For African Americans > 60 (> 60); eGFR For Non-African Americans > 60 (> 60)
[2021-09-02] MEDS: *HR* Heparin 5,000 UNIT/ML VIAL SQ SCH ×2 (05:07→18:02)
[2021-09-02] MEDS: Chlorhexidine Rinse 15 ML MOUTHWASH MM SCH ×2 (07:18→19:55)
[2021-09-02] MEDS: Cholecalciferol (D-3) 1,000 UNIT (25MCG) TABLET PO SCH (07:52)
[2021-09-02] MEDS: Pantoprazole 40 MG VIAL IVP SCH (07:52)
[2021-09-02] MEDS: Furosemide 40 MG/4 ML VIAL IVP SCH ×2 (07:53→19:55)
[2021-09-02] MEDS: Aspirin 81 MG TAB.CHEW PO SCH (07:54)
[2021-09-02] MEDS: Insulin LISPRO 300 UNITS/3 ML VIAL SUBQ SCH ×4 (07:54→19:56)
[2021-09-03] MEDS: *HR* OxyCODONE/APAP 5/325 TABLET PO PRN ×2 (01:27→20:48)
[2021-09-03] MEDS: *HR* Heparin 5,000 UNIT/ML VIAL SQ SCH ×2 (05:00→17:24)
[2021-09-03] MEDS: Chlorhexidine Rinse 15 ML MOUTHWASH MM SCH ×2 (07:17→18:47)
[2021-09-03 07:43] LABS: Basophils % 0.6 %
[2021-09-03 07:45] LABS: Basophils # 0.1 K/mcL (0.0-0.2); Eosinophils # 0.4 K/mcL (0.0-0.6); Eosinophils % 2.1 %; Hematocrit 28.3 % (37.5-50.1); Hemoglobin 9.7 g/dL (12.9-16.9); Immature Granulocytes % 2.4 % (0-4); Immature Platelets 16.4 % (1.1-6.1); Lymphocytes # 1.1 K/mcL (0.6-4.6); Lymphocytes % 6.7 %; Mean Corpuscular HGB Conc 34.3 g/dL (31.6-35.5); Mean Corpuscular Hemoglobin 31.8 pg (28.0-33.3); Mean Corpuscular Volume 92.8 fL (83.0-100.0); Mean Platelet Volume 13.2 fL (9.4-12.4); Monocytes # 2.1 K/mcL (0.0-1.3); Monocytes % 12.4 %; Platelet Count 117 K/mcL (140-400); Red Blood Count 3.05 M/mcL (4.19-5.50); Red Cell Distribution Width 13.8 % (11.5-14.5); Segmented Neutrophils % 75.8 %; White Blood Count 16.8 K/mcL (4.3-11.1)
[2021-09-03 07:56] LABS: Neutrophils # 12.7 K/mcL (1.6-8.9); Platelet Estimate Slight Decrease (Normal)
[2021-09-03] MEDS: Furosemide 40 MG/4 ML VIAL IVP SCH ×2 (08:01→17:24)
[2021-09-03] MEDS: Aspirin 81 MG TAB.CHEW PO SCH (08:02)
[2021-09-03] MEDS: Pantoprazole 40 MG VIAL IVP SCH (08:02)
[2021-09-03] MEDS: Cholecalciferol (D-3) 1,000 UNIT (25MCG) TABLET PO SCH (08:02)
[2021-09-03] MEDS: Insulin LISPRO 300 UNITS/3 ML VIAL SUBQ SCH ×4 (08:03→20:02)
[2021-09-03 10:46] LABS: BUN/Creatinine Ratio 21 (6-26); Blood Urea Nitrogen 26 mg/dL (8-23); Calcium 8.5 mg/dL (8.6-10.3); Carbon Dioxide 18 mEq/L (23-29); Chloride 102 mEq/L (98-107); Glucose 181 mg/dL (70-105); Magnesium 2.7 mg/dL (1.6-2.6); Osmolality,Calculated 291 (280-300); Sodium 136 mEq/L (136-145); eGFR For African Americans > 60 (> 60); eGFR For Non-African Americans 58 (> 60)
[2021-09-03] MEDS: Acetaminophen 325 MG TABLET PO PRN (16:25)
[2021-09-04] MEDS: *HR* Heparin 5,000 UNIT/ML VIAL SQ SCH ×2 (05:05→17:44)
[2021-09-04 05:43] LABS: Hemoglobin 9.8 g/dL (12.9-16.9); Mean Corpuscular Volume 93.2 fL (83.0-100.0); Mean Platelet Volume 13.6 fL (9.4-12.4)
[2021-09-04 05:45] LABS: Basophils # 0.1 K/mcL (0.0-0.2); Basophils % 0.7 %; Eosinophils # 0.8 K/mcL (0.0-0.6); Eosinophils % 5.7 %; Hematocrit 28.9 % (37.5-50.1); Immature Granulocytes % 2.4 % (0-4); Immature Platelets 17.6 % (1.1-6.1); Lymphocytes # 0.8 K/mcL (0.6-4.6); Lymphocytes % 5.5 %; Mean Corpuscular HGB Conc 33.9 g/dL (31.6-35.5); Mean Corpuscular Hemoglobin 31.6 pg (28.0-33.3); Monocytes # 1.6 K/mcL (0.0-1.3); Monocytes % 11.9 %; Neutrophils # 10.2 K/mcL (1.6-8.9); Platelet Count 116 K/mcL (140-400); Red Cell Distribution Width 13.6 % (11.5-14.5); Segmented Neutrophils % 73.8 %; White Blood Count 13.8 K/mcL (4.3-11.1)
[2021-09-04 05:50] LABS: BUN/Creatinine Ratio 28 (6-26); Blood Urea Nitrogen 31 mg/dL (8-23); Calcium 8.1 mg/dL (8.6-10.3); Carbon Dioxide 21 mEq/L (23-29); Chloride 99 mEq/L (98-107); Glucose 173 mg/dL (70-105); Magnesium 2.4 mg/dL (1.6-2.6); Osmolality,Calculated 285 (280-300); Potassium 4.9 mEq/L (3.5-5.1); Sodium 132 mEq/L (136-145); eGFR For African Americans > 60 (> 60); eGFR For Non-African Americans > 60 (> 60)
[2021-09-04] MEDS: Chlorhexidine Rinse 15 ML MOUTHWASH MM SCH ×2 (07:16→19:54)
[2021-09-04] MEDS: Insulin LISPRO 300 UNITS/3 ML VIAL SUBQ SCH ×4 (08:11→22:52)
[2021-09-04] MEDS: Furosemide 40 MG/4 ML VIAL IVP SCH ×2 (08:12→17:43)
[2021-09-04] MEDS: Aspirin 81 MG TAB.CHEW PO SCH (08:12)
[2021-09-04] MEDS: Cholecalciferol (D-3) 1,000 UNIT (25MCG) TABLET PO SCH (08:12)
[2021-09-04] MEDS: Pantoprazole 40 MG VIAL IVP SCH (08:12)
[2021-09-04] MEDS: Acetaminophen 325 MG TABLET PO PRN (16:08)
[2021-09-04] MEDS: Temazepam 15 MG CAPSULE PO PRN (19:54)
[2021-09-04] MEDS: *HR* OxyCODONE/APAP 5/325 TABLET PO PRN (19:54)
[2021-09-04] MEDS ORDERED: DiphenhydraMINE CREAM 28.4 GM TUBE TP PRN (20:07)
[2021-09-05] MEDS: *HR* Heparin 5,000 UNIT/ML VIAL SQ SCH (05:54)
[2021-09-05 07:15] LABS: Basophils # 0.1 K/mcL (0.0-0.2); Basophils % 0.9 %; Eosinophils % 7.4 %; Hematocrit 29.6 % (37.5-50.1); Hemoglobin 10.1 g/dL (12.9-16.9); Immature Granulocytes % 4.3 % (0-4); Lymphocytes # 0.6 K/mcL (0.6-4.6); Lymphocytes % 4.8 %; Mean Corpuscular HGB Conc 34.1 g/dL (31.6-35.5); Mean Corpuscular Hemoglobin 31.4 pg (28.0-33.3); Mean Corpuscular Volume 91.9 fL (83.0-100.0); Mean Platelet Volume 11.9 fL (9.4-12.4); Monocytes # 1.4 K/mcL (0.0-1.3); Monocytes % 10.7 %; Neutrophils # 9.4 K/mcL (1.6-8.9); Nucleated Red Blood Cells 0.2 /100 WBC (0); Platelet Count 222 K/mcL (140-400); Red Blood Count 3.22 M/mcL (4.19-5.50); Red Cell Distribution Width 13.3 % (11.5-14.5); Segmented Neutrophils % 71.9 %
[2021-09-05 07:29] LABS: BUN/Creatinine Ratio 24 (6-26); Blood Urea Nitrogen 27 mg/dL (8-23); Calcium 8.5 mg/dL (8.6-10.3); Carbon Dioxide 28 mEq/L (23-29); Chloride 95 mEq/L (98-107); Glucose 210 mg/dL (70-105); Magnesium 2.1 mg/dL (1.6-2.6); Osmolality,Calculated 285 (280-300); Potassium 3.7 mEq/L (3.5-5.1); Sodium 132 mEq/L (136-145); eGFR For African Americans > 60 (> 60); eGFR For Non-African Americans > 60 (> 60)
[2021-09-05] MEDS: *HR* OxyCODONE/APAP 5/325 TABLET PO PRN (07:36)
[2021-09-05] MEDS: Aspirin 81 MG TAB.CHEW PO SCH (09:15)
[2021-09-05] MEDS: Cholecalciferol (D-3) 1,000 UNIT (25MCG) TABLET PO SCH (09:15)
[2021-09-05] MEDS: Furosemide 40 MG/4 ML VIAL IVP SCH (09:16)
[2021-09-05] MEDS: Insulin LISPRO 300 UNITS/3 ML VIAL SUBQ SCH ×2 (09:25→14:58)
[2021-09-05] MEDS: Chlorhexidine Rinse 15 ML MOUTHWASH MM SCH (09:36)
[2021-09-05 11:53] VITALS: TEMP 97.8
[2021-09-05 12:29] VITALS: PULSE 72
[2021-09-05 12:31] VITALS: BP 87/66; O2SAT 96
[2021-09-05 12:44] LABS: ABG Base Excess -1 mEq/L (-2 to 3); ABG Chloride 102 mEq/L (98-107); ABG Glucose 288 mg/dL (60-95); ABG HCO3 25 mEq/L (21-27); ABG Ionized Calcium 1.14 mmol/L (1.15-1.35); ABG Oxygen Saturation 99 % (95-98); ABG PCO2 41 mmHg (35-45); ABG PH 7.38 pH Units (7.32-7.45); ABG PO2 164 mmHg (85-104); ABG TCO2 26 mEq/L (20-26)
[2021-09-05 13:47] LABS: Influenza A PCR Negative (Negative); Influenza B PCR Negative (Negative); Resp. Syncytial Virus PCR Negative (Negative)
[2021-09-05 14:14] LABS: Hematocrit 31.6 % (37.5-50.1); Hemoglobin 10.9 g/dL (12.9-16.9); Mean Corpuscular HGB Conc 34.5 g/dL (31.6-35.5); Mean Corpuscular Hemoglobin 32.2 pg (28.0-33.3); Mean Corpuscular Volume 93.5 fL (83.0-100.0); Mean Platelet Volume 12.1 fL (9.4-12.4); Platelet Count 283 K/mcL (140-400); Red Blood Count 3.38 M/mcL (4.19-5.50); Red Cell Distribution Width 13.3 % (11.5-14.5); White Blood Count 14.6 K/mcL (4.3-11.1)
[2021-09-05 14:38] LABS: SARS-CoV-2 by PCR (In House) Negative (Negative)
[2021-09-05 14:48] LABS: BUN/Creatinine Ratio 24 (6-26); Blood Urea Nitrogen 29 mg/dL (8-23); Calcium 8.9 mg/dL (8.6-10.3); Carbon Dioxide 27 mEq/L (23-29); Chloride 94 mEq/L (98-107); Glucose 280 mg/dL (70-105); Magnesium 2.6 mg/dL (1.6-2.6); Osmolality,Calculated 288 (280-300); Potassium 3.6 mEq/L (3.5-5.1); Sodium 131 mEq/L (136-145); eGFR For African Americans > 60 (> 60); eGFR For Non-African Americans 58 (> 60)
== END 2021-09-05 14:45 | DRG 233 ==
LOC: INVDIALAB 05:59 → 2ANU 10:17 → ICNU 08-31 17:01
PROVIDERS: ADMIT Internal Medicine Cardiovascular Disease; ATTEND Internal Medicine Cardiovascular Disease

== ENCOUNTER 2021-09-10 19:26 | Inpatient (IN) ==
[2021-09-10 22:53] LABS: Hematocrit 31.4 % (37.5-50.1); Hemoglobin 10.4 g/dL (12.9-16.9); Mean Corpuscular HGB Conc 33.1 g/dL (31.6-35.5); Mean Corpuscular Hemoglobin 31.3 pg (28.0-33.3); Mean Corpuscular Volume 94.6 fL (83.0-100.0); Mean Platelet Volume 10.7 fL (9.4-12.4); Nucleated Red Blood Cells 0.1 /100 WBC (0); Platelet Count 475 K/mcL (140-400); Red Blood Count 3.32 M/mcL (4.19-5.50); Red Cell Distribution Width 14.1 % (11.5-14.5); White Blood Count 16.6 K/mcL (4.3-11.1)
[2021-09-10 23:03] LABS: INR 1.2; Prothrombin Time 13.7 Seconds (9.4-12.1)
[2021-09-10 23:06] LABS: Activated Partial Thrombo Time 33.8 Seconds (26.0-36.0)
[2021-09-10 23:11] LABS: Alanine Aminotransferase 14 Units/L (7-52); Albumin 3.9 g/dL (3.5-5.7); Albumin/Globulin Ratio 1.4 (1.1-2.2); Alkaline Phosphatase 49 Units/L (34-104); Aspartate Amino Transferase 12 Units/L (13-39); BUN/Creatinine Ratio 19 (6-26); Bilirubin,Direct 0.4 mg/dL (0.0-0.2); Bilirubin,Total 1.4 mg/dL (0.3-1.0); Blood Urea Nitrogen 22 mg/dL (8-23); Calcium 9.5 mg/dL (8.6-10.3); Carbon Dioxide 30 mEq/L (23-29); Chloride 94 mEq/L (98-107); Globulin 2.7 g/dL (2.4-3.5); Glucose 117 mg/dL (70-105); Osmolality,Calculated 284 (280-300); Potassium 3.6 mEq/L (3.5-5.1); Sodium 135 mEq/L (136-145); Total Protein 6.6 g/dL (6.4-8.9); eGFR For African Americans > 60 (> 60); eGFR For Non-African Americans > 60 (> 60)
[2021-09-10 23:20] LABS: Troponin I 0.16 ng/mL (< 0.04)
[2021-09-10] MEDS ORDERED: Isovue-370 500 ML BOTTLE IVP ONE (23:34)
[2021-09-10 23:44] LABS: Anisocytosis 1+ (Not Present); Platelet Estimate Normal (Normal); Polychromasia 1+ (Not Present)
[2021-09-10 23:45] LABS: Eosinophils # 0.7 K/mcL (0.0-0.6); Lymphocytes # 3.7 K/mcL (0.6-4.6); Monocytes # 0.7 K/mcL (0.0-1.3); Neutrophils # 11.3 K/mcL (1.6-8.9); Reactive Lymphocytes Present (Not Present)
[2021-09-11] MEDS ORDERED: Naloxone 0.4 MG/ML INJ IVP PRN (03:10)
[2021-09-11] MEDS ORDERED: Ondansetron 4 MG/2 ML VIAL IVP PRN (03:10)
[2021-09-11] MEDS ORDERED: Dextrose 4 GM Chewable Tablets PO PRN ×2 (03:38)
[2021-09-11] MEDS ORDERED: *HR* Dextrose 50 % in Water (Syg) 50 ML SYRINGE IVP PRN (03:38)
[2021-09-11] MEDS ORDERED: D5% in Water 1,000 ML IVC PRN (03:38)
[2021-09-11] MEDS ORDERED: Ipratropium/Albuterol Neb 3 ML IH PRN (04:00)
[2021-09-11 06:28] LABS: Basophils # 0.1 K/mcL (0.0-0.2); Basophils % 0.8 %; Eosinophils # 0.5 K/mcL (0.0-0.6); Eosinophils % 3.3 %; Hematocrit 31.5 % (37.5-50.1); Hemoglobin 10.5 g/dL (12.9-16.9); Immature Granulocytes % 5.5 % (0-4); Lymphocytes # 1.3 K/mcL (0.6-4.6); Lymphocytes % 7.9 %; Mean Corpuscular HGB Conc 33.3 g/dL (31.6-35.5); Mean Corpuscular Hemoglobin 31.3 pg (28.0-33.3); Mean Corpuscular Volume 93.8 fL (83.0-100.0); Mean Platelet Volume 10.9 fL (9.4-12.4); Platelet Count 447 K/mcL (140-400); Red Blood Count 3.36 M/mcL (4.19-5.50); Red Cell Distribution Width 14.1 % (11.5-14.5); Segmented Neutrophils % 76.5 %; White Blood Count 15.9 K/mcL (4.3-11.1)
[2021-09-11 06:58] LABS: Neutrophils # 12.2 K/mcL (1.6-8.9)
[2021-09-11 07:14] LABS: Troponin I 0.14 ng/mL (< 0.04)
[2021-09-11 07:16] LABS: Anisocytosis 1+ (Not Present); Polychromasia 1+ (Not Present)
[2021-09-11 07:36] LABS: Alanine Aminotransferase 13 Units/L (7-52); Albumin 3.8 g/dL (3.5-5.7); Albumin/Globulin Ratio 1.6 (1.1-2.2); Alkaline Phosphatase 47 Units/L (34-104); Aspartate Amino Transferase 11 Units/L (13-39); BUN/Creatinine Ratio 21 (6-26); Bilirubin,Direct 0.3 mg/dL (0.0-0.2); Bilirubin,Indirect 1.2 mg/dL (0.0-1.0); Bilirubin,Total 1.5 mg/dL (0.3-1.0); Blood Urea Nitrogen 23 mg/dL (8-23); Calcium 9.3 mg/dL (8.6-10.3); Carbon Dioxide 29 mEq/L (23-29); Chloride 95 mEq/L (98-107); Globulin 2.4 g/dL (2.4-3.5); Glucose 122 mg/dL (70-105); Magnesium 1.8 mg/dL (1.6-2.6); Osmolality,Calculated 283 (280-300); Potassium 3.5 mEq/L (3.5-5.1); Sodium 134 mEq/L (136-145); Thyroid Stimulating Hormone 4.162 mcIU/mL (0.340-5.600); Total Protein 6.2 g/dL (6.4-8.9); eGFR For African Americans > 60 (> 60); eGFR For Non-African Americans > 60 (> 60)
[2021-09-11] MEDS: Insulin LISPRO 300 UNITS/3 ML VIAL SUBQ SCH ×3 (07:55→16:48)
[2021-09-11] MEDS: Acetaminophen 325 MG TABLET PO PRN ×2 (13:46→20:28)
[2021-09-11] MEDS ORDERED: Perflutren Lipid Microsphere 1.3 ML in 0.9 % Sodium Chloride 8.7 ML IVP PRN (14:39)
[2021-09-11] MEDS ORDERED: traZODone 50 MG TABLET PO PRN (20:26)
[2021-09-11] MEDS: *HR* Heparin 5,000 UNIT/ML VIAL SQ SCH (22:34)
[2021-09-12 02:12] LABS: Basophils # 0.2 K/mcL (0.0-0.2); Basophils % 1.4 %; Eosinophils # 0.5 K/mcL (0.0-0.6); Eosinophils % 4.3 %; Hematocrit 31.9 % (37.5-50.1); Hemoglobin 10.6 g/dL (12.9-16.9); Immature Granulocytes % 6.1 % (0-4); Lymphocytes # 1.2 K/mcL (0.6-4.6); Lymphocytes % 9.9 %; Mean Corpuscular HGB Conc 33.2 g/dL (31.6-35.5); Mean Corpuscular Hemoglobin 31.2 pg (28.0-33.3); Mean Corpuscular Volume 93.8 fL (83.0-100.0); Mean Platelet Volume 10.7 fL (9.4-12.4); Monocytes # 0.9 K/mcL (0.0-1.3); Monocytes % 7.2 %; Neutrophils # 8.8 K/mcL (1.6-8.9); Platelet Count 437 K/mcL (140-400); Red Cell Distribution Width 14.2 % (11.5-14.5); Segmented Neutrophils % 71.1 %; White Blood Count 12.4 K/mcL (4.3-11.1)
[2021-09-12 04:44] LABS: BUN/Creatinine Ratio 22 (6-26); Blood Urea Nitrogen 20 mg/dL (8-23); Carbon Dioxide 25 mEq/L (23-29); Chloride 99 mEq/L (98-107); Cholesterol 65 mg/dL (< 200); Glucose 122 mg/dL (70-105); HDL Cholesterol 22 mg/dL (40-59); LDL Cholesterol,Calculated 23 mg/dL (< 100); Osmolality,Calculated 286 (280-300); Potassium 3.5 mEq/L (3.5-5.1); Sodium 136 mEq/L (136-145); Triglycerides 102 mg/dL (< 150); eGFR For African Americans > 60 (> 60); eGFR For Non-African Americans > 60 (> 60)
[2021-09-12] MEDS: *HR* Heparin 5,000 UNIT/ML VIAL SQ SCH ×3 (05:45→21:35)
[2021-09-12] MEDS: Aspirin Enteric Coated 81 MG Tablet PO SCH (08:00)
[2021-09-12] MEDS: Insulin LISPRO 300 UNITS/3 ML VIAL SUBQ SCH ×3 (08:08→16:15)
[2021-09-12] MEDS ORDERED: *HR* LORazepam 2 MG/ML VIAL IVP ONE ×2 (12:06→21:14)
[2021-09-12] MEDS ORDERED: GuaiFENesin/Codeine Oral Soln 5 ML UDC PO ONE ×2 (12:07→21:13)
[2021-09-12] MEDS ORDERED: *HR* HYDROcodone/Acet 5/325 mg TABLET PO ONE (12:16)
[2021-09-12] MEDS ORDERED: Melatonin 3 MG TABLET PO SCH (21:00)
[2021-09-13 03:22] LABS: Basophils # 0.2 K/mcL (0.0-0.2); Basophils % 1.6 %; Eosinophils # 0.6 K/mcL (0.0-0.6); Eosinophils % 4.6 %; Hematocrit 33.6 % (37.5-50.1); Immature Granulocytes % 5.6 % (0-4); Lymphocytes # 1.5 K/mcL (0.6-4.6); Lymphocytes % 12.4 %; Mean Corpuscular HGB Conc 32.7 g/dL (31.6-35.5); Mean Corpuscular Hemoglobin 30.9 pg (28.0-33.3); Mean Corpuscular Volume 94.4 fL (83.0-100.0); Monocytes % 8.1 %; Neutrophils # 8.1 K/mcL (1.6-8.9); Platelet Count 457 K/mcL (140-400); Red Blood Count 3.56 M/mcL (4.19-5.50); Red Cell Distribution Width 14.2 % (11.5-14.5); Segmented Neutrophils % 67.7 %; White Blood Count 11.9 K/mcL (4.3-11.1)
[2021-09-13 03:58] LABS: BUN/Creatinine Ratio 20 (6-26); Blood Urea Nitrogen 18 mg/dL (8-23); Carbon Dioxide 26 mEq/L (23-29); Chloride 99 mEq/L (98-107); Glucose 117 mg/dL (70-105); Osmolality,Calculated 285 (280-300); Potassium 3.7 mEq/L (3.5-5.1); Sodium 136 mEq/L (136-145); eGFR For African Americans > 60 (> 60); eGFR For Non-African Americans > 60 (> 60)
[2021-09-13 04:38] LABS: Polychromasia 1+ (Not Present)
[2021-09-13 04:39] LABS: Stomatocytes 1+ (Not Present)
[2021-09-13] MEDS: *HR* Heparin 5,000 UNIT/ML VIAL SQ SCH (05:23)
[2021-09-13 08:31] LABS: Bilirubin,Urine Negative (Negative); Blood,Urine Negative (Negative); Budding Yeast,Urine Moderate per hpf (None Seen); Clarity,Urine Clear (Clear); Color,Urine Yellow (Yellow); Glucose,Urine (UA) 30 mg/dL (Normal); Hyaline Casts,Urine Few per lpf (None Seen); Ketones,Urine 10 mg/dL (Negative); Leukocyte Esterase,Urine Trace (Negative); Mucus,Urine Few per lpf (None-Few); Nitrite,Urine Negative (Negative); PH,Urine 7.5 pH Units (5.0-8.0); Protein,Urine 50 mg/dL (Neg-Trace); Specific Gravity,Urine 1.027 (1.010-1.025); Squamous Epithelial Cell,Urine Few per hpf (None-Few); Urobilinogen,Urine >=8.0 mg/dL (Normal); WBC,Urine 15-30 per hpf (0-3)
[2021-09-13] MEDS: Aspirin Enteric Coated 81 MG Tablet PO SCH (08:44)
[2021-09-13] MEDS: Insulin LISPRO 300 UNITS/3 ML VIAL SUBQ SCH ×2 (08:44→11:50)
[2021-09-13 10:44] VITALS: BP 136/64; PULSE 66; TEMP 97.9; O2SAT 98
== END 2021-09-13 15:43 | disposition home health service (06) | DRG 948 ==
LOC: EMEROOARM 19:26 → 2NENU 19:26 → SUATTDRO 09-11 02:48 → 2NENU 09-11 03:47
PROVIDERS: ADMIT Internal Medicine; ATTEND Student in an Organized Health Care Education/Training Program